=== PATIENT | female | born 1970 | race Caucasian/White ===

== ENCOUNTER 2018-06-15 13:40 | Day surgery (SDC) | payer OTHER ==
[~2018-06-15 13:40] MED LIST: CEFAZOLIN 1 GM INJ
[2018-06-15] MEDS: LACTATED RINGER'S 1,000 ML IV* (14:27)
[2018-06-15] MEDS ORDERED: CEFAZOLIN 1 GM/50 ML (PMX) 50 ML IVPB (14:30)
[2018-06-15] MEDS ORDERED: POLYMYXIN/BACITRACIN 1L IRRIG (15:22)
[2018-06-15] MEDS ORDERED: ONDANSETRON 4 MG INJ IV ×2 (15:30→16:30)
[2018-06-15] MEDS ORDERED: morphine 10 MG INJ IM (15:30)
[2018-06-15] MEDS ORDERED: OXYCODONE/ACETAMINOPHEN (5/325) TAB PO (15:30)
[2018-06-15] MEDS ORDERED: EPHEDrine SULFATE 50 MG/5 ML SYG (15:33)
[2018-06-15] MEDS ORDERED: LIDOCAINE 100 MG SYRINGE (15:33)
[2018-06-15] MEDS ORDERED: MIDAZOLAM 1 MG/ML 2 ML INJ (15:33)
[2018-06-15] MEDS ORDERED: SUCCINYLCHOLINE CHLORIDE 100 MG/5 ML SYG IV (15:33)
[2018-06-15] MEDS ORDERED: PROPOFOL 100 ML (15:33)
[2018-06-15] MEDS ORDERED: FENTAnyl 50 MCG/ML VIAL ×2 (15:33→15:59)
[2018-06-15] MEDS ORDERED: DEXAMETHASONE 4 MG/ML 1 ML INJ (15:58)
[2018-06-15] MEDS ORDERED: ONDANSETRON 4 MG INJ (15:58)
[2018-06-15] MEDS ORDERED: DIPHENHYDRAMINE 50 MG INJ (15:58)
[2018-06-15] MEDS ORDERED: PHENYLephrine (100 MCG/ML) 5ML SYG (16:00)
[2018-06-15] MEDS ORDERED: ACETAMINOPHEN 1000MG/100ML IV 100 ML (16:08)
[2018-06-15] MEDS: ROPIVACAINE 0.5 % 30 ML VIAL (16:26)
[2018-06-15] MEDS ORDERED: LABETALOL HCL 20MG INJ IV (16:30)
[2018-06-15] MEDS ORDERED: HYDROmorphONE 1 MG/5 ML IV SYRINGE IV ×2 (16:30)
[2018-06-15] MEDS ORDERED: MEPERIDINE 25 MG INJ IV (16:30)
[2018-06-15] MEDS ORDERED: hydrALAzine 20 MG INJ IV (16:30)
[2018-06-15] MEDS ORDERED: METOCLOPRAMIDE 10 MG INJ IV (16:30)
[2018-06-15] MEDS ORDERED: FENTAnyl 50 MCG/ML VIAL IV ×2 (16:30)
== END 2018-06-15 18:12 | disposition home or self-care (01) ==
LOC: SDS 13:40
DX: S83.242A Other tear of medial meniscus, current injury, left knee, initial encounter (principal); M25.562 Pain in left knee; M94.262 Chondromalacia, left knee; X58.XXXA Exposure to other specified factors, initial encounter; Y93.89 Activity, other specified; Y92.89 Other specified places as the place of occurrence of the external cause; Y99.8 Other external cause status
CPT/HCPCS: 29881